=== PATIENT | male | born 1985 | race Caucasian/White ===

== ENCOUNTER 2017-02-19 23:19 | Emergency (ER) | payer BC, OTHER ==
[~2017-02-19] VITALS: Ht 180.3 cm; Wt 111.5 kg
[2017-02-19 23:24] VITALS: BP 147/93; TEMP 36.9; Ht 180.3 cm; Wt 111.5 kg
[2017-02-19] MEDS ORDERED: DEXAMETHASONE SOD INJ 10 MG/ML VIAL PO ONE (23:30)
[2017-02-19] MEDS ORDERED: AMOXICIL/CLAVU 875MG HOME PACK PO ONE (23:30)
[2017-02-19] MEDS ORDERED: OXYCODONE IR HOME PACK PO ONE (23:30)
[2017-02-19] MEDS ORDERED: AMOX875T PO (23:35)
[2017-02-19 23:49] VITALS: PULSE 81; O2SAT 99
--- NOTE | 2017-02-20 05:47 | EMERGENCY ROOM VISIT NOTE ---
History First contact with patient: 23:29 Chief Complaint: EAR PAIN Stated Complaint: EAR ACHE,SORETHOAT History of Present Illness The patient is a 31 year old male who presents to the Emergency Room with complaints of cough, congestion, cold symptoms for the past few days who developed left ear pain today. Pain currently 5 out of 10. Nothing makes it better or worse. It does not radiate. Subjective fever and chills. Patient denies chest pain, dyspnea, neck stiffness, abdominal pain, vomiting, diarrhea. Review of Systems See HPI for pertinent positives & negatives. A total of 10 systems reviewed and were otherwise negative. Past Medical/Surgical History Medical Problems: (1) No Known Active Medical Problems Social History Smoking Status: Never Smoker Alcohol Use: occasionally Marital Status: single Housing Status: lives with family Occupation Status: employed Current/Historical Medications Scheduled Amoxicillin & Pot Clavulanate (Augmentin 875-125 mg), 1 TAB PO BID Physical Exam Vital Signs Date Time Temp Pulse Resp B/P (MAP) Pulse Ox O2 Delivery O2 Flow Rate FiO2 02/19/17 23:49 81 18 99 02/19/17 23:24 36.9 98 18 147/93 97 Room Air Pain Rating (0-10): 3.0 Physical Exam VITALS: Vitals are noted on the nurse's note and reviewed by myself. Vital signs stable. GENERAL: Pleasant male, in no acute distress, nondiaphoretic, well-developed well-nourished. SKIN: The skin was without rashes, erythema, edema, or bruising. There is no tenting of the skin. Capillary reflex less than 2 seconds. HEAD: Normocephalic atraumatic. EARS: Left TM Bulging consistent with otitis media, right External auditory canals clear, tympanic membranes pearly ruelas without erythema or effusion no mastoid tenderness bilaterally. EYES: Pupils equal round and reactive to light and accommodation. Conjunctivae without injection, sclerae without icterus. Extraocular movements intact. NOSE: Patent, turbinates without inflammation or discharge. No sinus tenderness. MOUTH: Mucous membranes moist. Pharynx without erythema or exudate. Uvula midline. Airway patent. Tongue does not deviate. NECK: Supple without nuchal rigidity. No lymphadenopathy. No thyromegaly. Cervical spine is nontender. No JVD. HEART: Regular rate and rhythm without murmurs gallops or rubs. LUNGS: Clear to auscultation bilaterally without wheezes, rales or rhonchi. No dullness to percussion. No retractions or accessory muscle use. ABDOMEN: Positive bowel sounds x 4. Normal tympanic percussion. Soft, nontender, without masses or organomegaly. Mayen sign negative. No guarding or rebound tenderness. MUSCULOSKELETAL: No muscle atrophy, erythema, or edema noted. NEURO: Patient was alert and oriented to person place and time. Normal sensation to light and sharp touch. No focal neurological deficits. Medical Decision & Procedures Medications Administered Medications (Trade) Dose Ordered Sig/Manish Route Start Time Stop Time Status Last Admin Dose Admin Oxycodone HCl (Roxicodone Immediate Rel 5MG Home Pack) 1 homepack UD ONCE PO 02/19/17 23:30 02/19/17 23:32 DC 02/19/17 23:45 1 HOMEPACK Dexamethasone Sodium Phosphate (Decadron Inj) 10 mg NOW ONCE PO 02/19/17 23:30 02/19/17 23:32 DC 02/19/17 23:45 10 MG Amoxicillin/ Clavulanate Potassium (Augmentin 875MG Home Pack) 1 homepack UD ONCE PO 02/19/17 23:30 02/19/17 23:32 DC 02/19/17 23:45 1 HOMEPACK ED Course Prior records/ancillary studies reviewed. Triage Nursing notes reviewed. The patient's history was concerning for a cold symptoms Differential diagnosis: Etiologies such as viral syndrome, tonsillitis, streptococcal pharyngitis, mononucleosis, peritonsillar abscess, retropharyngeal abscess, otitis, pneumonia , influenza, as well as others were entertained. ER treatment provided: Augmentin On reassessment the patient felt better. Diagnostics interpreted by me: Deferred This appears to be consistent with left otitis media. Patient states he has resistance with amoxicillin and normally needs Augmentin. He also states that he needs steroids. Patient had no signs of meningitis or mastoiditis. He was well-appearing. He was started on antibiotics and advised follow-up family care here in the ER sooner for high fevers, lethargy, next of this, worsening signs or symptoms or as needed. Patient no signs of airway comprise or abscess.. By the evaluation outlined above emergent etiologies such as peritonsillar abscess, retropharyngeal abscess, pneumonia, meningitis, urinary tract infection, sepsis, bacteremia, as well as others were deemed relatively unlikely. The pt informed about the findings as listed above. All questions were answered and pleased with the treatment. Return instructions were outlined and the patient was discharged in stable condition. Outpatient prescription management: Augmentin Referral: The patient was referred back to their primary care physician for follow-up in 2 to 3 days for a recheck of the current condition. Medical Decision As above Medication Reconcilliation Current Medication List: was personally reviewed by me Blood Pressure Screening Patient's blood pressure: Elevated blood pressure Blood pressure disposition: Elevated BP felt to be situational, Referred to PCP Impression Primary Impression: Left otitis media Departure Information Dispostion Home / Self-Care Condition GOOD Prescriptions Amoxicillin & Pot Clavulanate (Augmentin 875-125 mg) 1 Tab Tab 1 TAB PO BID for 9 Days, #18 TAB Prov: Ann Graff PA-C 02/19/17 Referrals No Doctor, Assigned (PCP) Krista Sandra M.D. Forms WORK / SCHOOL INSTRUCTIONS, HOME CARE DOCUMENTATION FORM, IMPORTANT VISIT INFORMATION Patient Instructions [facility], ED Otitis Media Serous Adult Additional Instructions Amoxicillin Clavulanate (Augmentin) 875mg: Take one pill twice daily for 10 days for your infection. All antibiotics can cause diarrhea. If this occurs and you feel worse or it does not resolve in 1-2 days follow up with your doctor or return to the Emergency Department as this could be signs of serious underlying problems. Any medication can cause an allergic reaction, stop the pills immediately and return to the ER for rash, hives, breathing difficulties, or swelling. Acetaminophen(Tylenol) may be used for fever or pain. Use 1000mg every six hours as needed. Avoid using more than 3000mg in a 24 hour period. Oxycodone (OxyIR) 5mg: Take 1-2 pills every four hours for breakthrough pain. Avoid alcohol, operating machinery or dangerous equipment, working on ladders or roofs, DRIVING, or situations where being under the influence may be dangerous. It is recommended to use an [id number] stool softener such as Colace, 100mg twice daily while taking this medication to avoid constipation. Afrin nasal spray: 2-3 sprays to each nostril twice daily as needed for congestion. Do not use for more than 3-4 days because it can lead to worsening rebound congestion. Pseudoephedrine(Sudaphed): 30-60mg every 6 hours as needed for nasal congestion. Do not take this with other stimulant products or supplements. Rest and drink plenty of fluids. Controlling your fever with Tylenol and Ibuprofen as above will make you feel better. Wash your hands after nose blowing, sneezing, or coughing. Most germs are spread through contact, therefore improper hygiene may result in your close contacts and loved ones becoming ill just like you. Continue current medications. Return to the ER for severe headache, neck stiffness, chest pain, difficulty breathing, fevers, vomiting, worsening of your condition, or as needed. Follow up with your primary physician this week for a recheck of your current condition. Problem Qualifiers Primary Impression: Left otitis media Otitis media type: suppurative Chronicity: acute Recurrence: not specified as recurrent Spontaneous tympanic membrane rupture: without spontaneous rupture Qualified Codes: H66.002 - Acute suppurative otitis media without spontaneous rupture of ear drum, left ear
== END 2017-02-19 23:50 | disposition home or self-care (01) ==
LOC: C.EDB 23:20 → C.EDD 23:50
DX: H66.92 Otitis media, unspecified, left ear (principal)

== ENCOUNTER 2022-04-27 07:15 | Inpatient (IN) ==
[2022-04-27] MEDS ORDERED: SODIUM CHLORIDE 0.9% 1000ML 1,000 ML IV STA (07:22)
[2022-04-27] MEDS ORDERED: MoRPHine SULFATE 4 MG/ML 1 ML CARP\\VIAL IV STA ×2 (07:28→08:00)
[2022-04-27] MEDS ORDERED: ONDANSETRON INJ 2 MG/ML 2 ML VIAL IV STA (07:28)
--- NOTE | 2022-04-27 07:32 | Emergency Department Note ---
Impression & Plan Pancreatitis ED Provider Note Provider: Juanito Washington MD DATE OF SERVICE: 04/27/2022 CHIEF COMPLAINT: Upper abdominal pain HISTORY OF PRESENT ILLNESS: Patient is a 36-year-old gentleman history of GERD and seasonal allergies presenting here today stating over the past 5 days or so developing some pain in the upper abdomen. Worse over the past 2 days. Seen at an urgent care yesterday with an x-ray and some basic blood work and scheduled for an ultrasound on Tuesday to evaluate for possible gallbladder symptoms. Reports upper abdominal pain intermittently some nausea. Denies vomiting or diarrhea. States little constipated if anything. Denies any significant lower abdominal pain or pain. Reports upper abdominal pain with slight radiation to the flanks. Patient states it hurts when he takes deep breath. Denies any trauma. Denies a history of similar prior abdominal surgeries. Patient has tried some Tylenol without improvement. Did not eat much overnight as he did no t know if this would affect imaging. Given worsening came here today. REVIEW OF SYSTEMS: A total of 10 review of systems was obtained and negative except as stated above in the HPI. PAST MEDICAL HISTORY: As noted above MEDICATIONS: Reviewed home medications SOCIAL HISTORY: Lives in [facility] PHYSICAL EXAM: GENERAL: alert and oriented but appears uncomfortable laying on stretcher Head: normocephalic and atraumatic EYES: No injection, discharge or icterus. NECK: Trachea midline. Supple. ENT: Mucous membranes pink and moist. LUNGS: Airway patent. No retractions. Breath sounds clear with good air entry bilaterally. HEART: Regular rate and rhythm. No chest wall tenderness ABDOMEN: Soft and non-tender, without guarding or rebound. No masses BACK: Significant upper abdominal tenderness and SKIN: Acyanotic, warm, dry, without rashes EXTREMITIES: Without swelling, tenderness or deformity NEUROLOGICAL: No focal deficits. No aphasia. No facial droop or slurred speech. Normal strength and tone in the extremities. Sensation to gross touch normal. Ambulatory. EK bpm normal sinus rhythm. No PVC or PAC. No acute ST segment elevation or depression with a QTC of 437 and lead III T wave inversions noted. CONTINUOUS CARDIAC MONITORING: was ordered and showed a heart rate of 90s-110s bpm in normal sinus rhythm to sinus tachycardia Patient's laboratory studies and imaging reviewed. Differential includes Appendicitis, testicular torsion, infections, diverticulitis, UTI, obstruction, mesenteric ischemia, aortic pathology, inflammatory bowel disease, renal colic, PUD, pancreatitis, biliary pathology, hernia, volvulus, constipation, as well as other pathologies. IMPRESSION/MEDICAL DECISION MAKING: Patient denies any lower abdominal pain or pain. Low suspicion for this or appendicitis. Significant upper abdominal discomfort. Could possibly represent biliary disease and will send for an ultrasound. EKG obtained as well troponin which are reassuring. Basic labs sent. Given his tenderness question again possible biliary pathology versus other occult intra-abdominal pathology particularly if ultrasound is reassuring. It is morphine, Zofran, and IV fluids here to help with symptom control. Blood work here shows leukocytosis 14. No anemia. No significant electrolyte abnormality or signs of renal dysfunction. Troponin is undetectable and again I doubt this is cardiac in nature especially in light of several days of symptoms. AST ALT alkaline phosphatase within normal limits with bilirubin 1.1 just above normal. No evidence of lipase based on laboratory studies. Negative COVID. Gallbladder ultrasound returns by radiology report without significant gallbladder findings noted. CT scan of the abdomen pelvis to be completed of the patient's pain improving some after some morphine. Question possible gastric etiology. CT report however is indicative of acute pancreatitis even though lipase is not elevated. Given this discussed with patient further care at the hospital and hospitalist was contacted. Patient denies significant a lcohol use and no history of diabetes. Triglycerides not elevated. DIAGNOSIS: Acute pancreatitis DISPOSITION: Hospitalist will evaluate Patient was agreeable with this plan. Past Med/Surg History Medical History Acute left otitis media Substernal chest pain Family History Other No significant family history Social History Smoking Status: Never smoker Preferred Language: Bengali Feels Safe at Home: Yes Allergies Allergies Allergy/AdvReac Type Severity Reaction Status Date / Time NSAIDS (Non-Steroidal Allergy Intermediate HAND Verified 04/13/22 22:02 Anti-Inflamma EDEMA/VESICULAR ERUPTION bee venom protein (honey bee) AdvReac swelling @ Verified 04/13/22 22:03 site Home Meds Home Medications Medication Instructions Recorded Confirmed acetaminophen 500 mg tablet 1,000 - 1,500 mg PO TID PRN Pain 04/13/22 04/13/22 (Tylenol Extra Strength) cephalexin 500 mg capsule 500 mg PO QID 04/13/22 04/13/22 fexofenadine 180 mg tablet 180 mg PO DAILY 04/13/22 04/13/22 ([facility] Allergy) omeprazole 20 mg capsule,delayed 20 mg PO DAILY 04/13/22 04/13/22 release Previous Rx's Medication Instructions Recorded amoxicillin 875 mg-potassium 1 tab PO BID #20 tabs 04/13/22 clavulanate 125 mg tablet Results & Data (ED) Vital Signs Vital Signs - 24 hr 04/27/22 07:16 04/27/22 07:46 04/27/22 07:45 Temperature 36.4 C L Temperature Source Temporal Artery Scan Pulse Rate 125 H 96 H Pulse Rate [Finger] Pulse Rate from SpO2 Sensor Pulse Rhythm Regular Respiratory Rate 22 19 Respiratory Effort / Characteristics Respiratory Depth Normal Respiratory Pattern Blood Pressure 130/75 Blood Pressure [Right Arm] Blood Pressure Mean 93 Blood Pressure Mean [Right Arm] Blood Pressure Position [Right Arm] Pulse Oximetry 97 91 Oxygen Delivery Method Room Air Room Air Room Air Sepsis Recent Fever Within 48 Hours No Sepsis New/Unexplained Change in Mental Status N/A Sepsis Action Taken by Nursing No Action Required 04/27/22 07:50 04/27/22 09:52 04/27/22 09:22 Temperature Temperature Source Pulse Rate 116 H 95 H Pulse Rate [Finger] 101 H Pulse Rate from SpO2 Sensor Pulse Rhythm Respiratory Rate 20 16 19 Respiratory Effort / Characteristics Non-Labored Spontaneous Respiratory Depth Normal Respiratory Pattern Regular Blood Pressure Blood Pressure [Right Arm] 154/90 H Blood Pressure Mean Blood Pressure Mean [Right Arm] 111 Blood Pressure Position [Right Arm] Lying Pulse Oximetry 96 98 Oxygen Delivery Method Room Air Room Air Room Air Sepsis Recent Fever Within 48 Hours Sepsis New/Unexplained Change in Mental Status Sepsis Action Taken by Nursing 04/27/22 09:30 04/27/22 09:40 04/27/22 09:50 Temperature Temperature Source Pulse Rate 101 H 102 H 110 H Pulse Rate [Finger] Pulse Rate from SpO2 Sensor Pulse Rhythm Respiratory Rate 14 19 18 Respiratory Effort / Characteristics Respiratory Depth Respiratory Pattern Blood Pressure Blood Pressure [Right Arm] Blood Pressure Mean Blood Pressure Mean [Right Arm] Blood Pressure Position [Right Arm] Pulse Oximetry Oxygen Delivery Method Room Air Room Air Room Air Sepsis Recent Fever Within 48 Hours Sepsis New/Unexplained Change in Mental Status Sepsis Action Taken by Nursing 04/27/22 09:51 04/27/22 09:51 04/27/22 10:00 Temperature Temperature Source Pulse Rate 93 H Pulse Rate [Finger] Pulse Rate from SpO2 Sensor 98 H Pulse Rhythm Respiratory Rate 17 Respiratory Effort / Characteristics Respiratory Depth Respiratory Pattern Blood Pressure 154/90 H 165/102 H Blood Pressure [Right Arm] Blood Pressure Mean 111 123 Blood Pressure Mean [Right Arm] Blood Pressure Position [Right Arm] Pulse Oximetry 98 Oxygen Delivery Method Room Air Room Air Room Air Sepsis Recent Fever Within 48 Hours Sepsis New/Unexplained Change in Mental Status Sepsis Action Taken by Nursing 04/27/22 10:00 04/27/22 10:10 04/27/22 10:20 Temperature Temperature Source Pulse Rate 110 H 104 H 106 H Pulse Rate [Finger] Pulse Rate from SpO2 Sensor 107 H 104 H 108 H Pulse Rhythm Respiratory Rate 24 17 27 H Respiratory Effort / Characteristics Respiratory Depth Respiratory Pattern Blood Pressure Blood Pressure [Right Arm] Blood Pressure Mean Blood Pressure Mean [Right Arm] Blood Pressure Position [Right Arm] Pulse Oximetry 97 94 97 Oxygen Delivery Method Room Air Room Air Room Air Sepsis Recent Fever Within 48 Hours Sepsis New/Unexplained Change in Mental Status Sepsis Action Taken by Nursing 04/27/22 10:30 04/27/22 10:30 04/27/22 10:40 Temperature Temperature Source Pulse Rate 98 H 106 H Pulse Rate [Finger] Pulse Rate from SpO2 Sensor 98 H 105 H Pulse Rhythm Respiratory Rate 19 20 Respiratory Effort / Characteristics Respiratory Depth Respiratory Pattern Blood Pressure 152/94 H Blood Pressure [Right Arm] Blood Pressure Mean 113 Blood Pressure Mean [Right Arm] Blood Pressure Position [Right Arm] Pulse Oximetry 97 97 Oxygen Delivery Method Room Air Room Air Room Air Sepsis Recent Fever Within 48 Hours Sepsis New/Unexplained Change in Mental Status Sepsis Action Taken by Nursing 04/27/22 10:50 04/27/22 11:59 04/27/22 11:00 Temperature Temperature Source Pulse Rate 99 H Pulse Rate [Finger] Pulse Rate from SpO2 Sensor 98 H Pulse Rhythm Respiratory Rate 18 Respiratory Effort / Characteristics Respiratory Depth Respiratory Pattern Blood Pressure 119/77 Blood Pressure [Right Arm] Blood Pressure Mean 91 Blood Pressure Mean [Right Arm] Blood Pressure Position [Right Arm] Pulse Oximetry 94 Oxygen Delivery Method Room Air Room Air Room Air Sepsis Recent Fever Within 48 Hours Sepsis New/Unexplained Change in Mental Status Sepsis Action Taken by Nursing 04/27/22 11:00 04/27/22 11:10 04/27/22 11:20 Temperature Temperature Source Pulse Rate 98 H 102 H 103 H Pulse Rate [Finger] Pulse Rate from SpO2 Sensor 99 H 104 H 102 H Pulse Rhythm Respiratory Rate 19 18 17 Respiratory Effort / Characteristics Respiratory Depth Respiratory Pattern Blood Pressure Blood Pressure [Right Arm] Blood Pressure Mean Blood Pressure Mean [Right Arm] Blood Pressure Position [Right Arm] Pulse Oximetry 95 96 97 Oxygen Delivery Method Room Air Room Air Room Air Sepsis Recent Fever Within 48 Hours Sepsis New/Unexplained Change in Mental Status Sepsis Action Taken by Nursing 04/27/22 11:30 04/27/22 11:30 04/27/22 11:40 Temperature Temperature Source Pulse Rate 110 H Pulse Rate [Finger] Pulse Rate from SpO2 Sensor 101 H 109 H Pulse Rhythm Respiratory Rate 14 18 Respiratory Effort / Characteristics Respiratory Depth Respiratory Pattern Blood Pressure 150/88 H Blood Pressure [Right Arm] Blood Pressure Mean 108 Blood Pressure Mean [Right Arm] Blood Pressure Position [Right Arm] Pulse Oximetry 100 96 Oxygen Delivery Method Room Air Room Air Room Air Sepsis Recent Fever Within 48 Hours Sepsis New/Unexplained Change in Mental Status Sepsis Action Taken by Nursing 04/27/22 11:50 Temperature Temperature Source Pulse Rate Pulse Rate [Finger] Pulse Rate from SpO2 Sensor 104 H Pulse Rhythm Respiratory Rate 18 Respiratory Effort / Characteristics Respiratory Depth Respiratory Pattern Blood Pressure Blood Pressure [Right Arm] Blood Pressure Mean Blood Pressure Mean [Right Arm] Blood Pressure Position [Right Arm] Pulse Oximetry 97 Oxygen Delivery Method Room Air Sepsis Recent Fever Within 48 Hours Sepsis New/Unexplained Change in Mental Status Sepsis Action Taken by Nursing Laboratory Data Result diagrams: 04/27/22 07:48 04/27/22 07:48 Lab Results 04/27/22 04/27/22 04/27/22 Range/Units 07:42 07:48 07:48 WBC 14.32 H (4.8-10.8) K/ul RBC 5.56 (4.63-6.08) M/uL Hgb 16.7 (14.0-18.0) g/dl Hct 48.3 (40.1-51.0) % MCV 86.9 (80.0-100.0) fL MCH 30.0 (25.0-34.0) pg MCHC 34.6 (32.0-36.0) g/dL RDW Std Deviation 41.8 (36.4-46.3) fL RDW Coeff of Finn 13.2 (11.5-14.5) % Plt Count 258 (130-400) K/uL MPV 9.4 (9.4-12.4) fL Immature Gran % (Auto) 0.4 % Neut % (Auto) 76.8 % Lymph % (Auto) 14.9 % Bryan % (Auto) 7.3 % Eos % (Auto) 0.3 % Baso % (Auto) 0.3 % Neut # (Auto) 10.99 H (1.4-6.5) K/uL Lymph # (Auto) 2.13 (1.2-3.4) K/uL Bryan # (Auto) 1.04 H (0.24-0.82) K/uL Eos # (Auto) 0.05 (0-0.50) K/uL Baso # (Auto) 0.05 (0-0.2) K/uL Immature Gran # (Auto) 0.06 H (0.00-0.02) K/uL Sodium 137 (136-145) mmol/L Potassium 4.0 (3.5-5.1) mmol/L Chloride 102 (98-107) mmol/L Carbon Dioxide 27 (21-32) mmol/L Anion Gap 8 (3-11) BUN 10 (6-23) mg/dl Creatinine 1.06 (0.6-1.4) mg/dl Est Cr Clr Drug Dosing 121.0 ml/min Est GFR ( Amer) 105.6 ml/min Est GFR (Non-Af Amer) 91.1 ml/min BUN/Creatinine Ratio 9.4 L (10-20) Glucose 103 H (70-99(Fasting)) mg/dl Calcium 9.9 (8.5-10.1) mg/dl Total Bilirubin 1.1 H (0.2-1.0) mg/dl AST 14 (13-39) U/L ALT 24 (7-52) U/L Alkaline Phosphatase 41 (34-104) U/L Troponin I High Sens < 2.3 (0-20) pg/ml Total Protein 7.7 (6.0-8.3) gm/dl Albumin 4.7 (3.4-5.0) gm/dl Globulin 3.0 (2.5-4.0) gm/dl Albumin/Globulin Ratio 1.6 (0.9-2) Triglycerides (0-150) mg/dl Lipase 32 (11-82) U/L Urine Color Urine Appearance (Clear) Urine pH (4.5-7.5) Ur Specific [place] (1.000-1.030) Urine Protein (Negative) Urine Glucose (UA) (Negative) Urine Ketones (Negative) Urine Blood (Negative) Urine Nitrite (Negative) Urine Bilirubin (Negative) Urine Urobilinogen (Negative) Ur Leukocyte Esterase (Negative) SARS-CoV-2, RNA, NAAT NEGATIVE (NEGATIVE) 04/27/22 04/27/22 Range/Units 07:48 10:35 WBC (4.8-10.8) K/ul RBC (4.63-6.08) M/uL Hgb (14.0-18.0) g/dl Hct (40.1-51.0) % MCV (80.0-100.0) fL MCH (25.0-34.0) pg MCHC (32.0-36.0) g/dL RDW Std Deviation (36.4-46.3) fL RDW Coeff of Finn (11.5-14.5) % Plt Count (130-400) K/uL MPV (9.4-12.4) fL Immature Gran % (Auto) % Neut % (Auto) % Lymph % (Auto) % Bryan % (Auto) % Eos % (Auto) % Baso % (Auto) % Neut # (Auto) (1.4-6.5) K/uL Lymph # (Auto) (1.2-3.4) K/uL Bryan # (Auto) (0.24-0.82) K/uL Eos # (Auto) (0-0.50) K/uL Baso # (Auto) (0-0.2) K/uL Immature Gran # (Auto) (0.00-0.02) K/uL Sodium (136-145) mmol/L Potassium (3.5-5.1) mmol/L Chloride (98-107) mmol/L Carbon Dioxide (21-32) mmol/L Anion Gap (3-11) BUN (6-23) mg/dl Creatinine (0.6-1.4) mg/dl Est Cr Clr Drug Dosing ml/min Est GFR ( Amer) ml/min Est GFR (Non-Af Amer) ml/min BUN/Creatinine Ratio (10-20) Glucose (70-99(Fasting)) mg/dl Calcium (8.5-10.1) mg/dl Total Bilirubin (0.2-1.0) mg/dl AST (13-39) U/L ALT (7-52) U/L Alkaline Phosphatase (34-104) U/L Troponin I High Sens (0-20) pg/ml Total Protein (6.0-8.3) gm/dl Albumin (3.4-5.0) gm/dl Globulin (2.5-4.0) gm/dl Albumin/Globulin Ratio (0.9-2) Triglycerides 101 (0-150) mg/dl Lipase (11-82) U/L Urine Color Yellow Urine Appearance Clear (Clear) Urine pH 5.5 (4.5-7.5) Ur Specific [place] > 1.045 H (1.000-1.030) Urine Protein Negative (Negative) Urine Glucose (UA) Negative (Negative) Urine Ketones Trace H (Negative) Urine Blood Negative (Negative) Urine Nitrite Negative (Negative) Urine Bilirubin Negative (Negative) Urine Urobilinogen Negative (Negative) Ur Leukocyte Esterase Negative (Negative) SARS-CoV-2, RNA, NAAT (NEGATIVE) Administered Medications Discontinued Medications Sodium Chloride (Nss 1000ml) 1,000 mls @ 999 mls/hr IV .Q1H1M STA Stop: 04/27/22 08:22 Last Infusion: 04/27/22 09:00 Dose: 0 mls/hr Documented By: Admin: 04/27/22 07:35 Dose: 999 mls/hr Documented By: MORIAH Lactated Ringer's (Lr) 1,000 mls @ 999 mls/hr IV .Q1H1M ONE Stop: 04/27/22 11:11 Last Infusion: 04/27/22 11:39 Dose: 0 mls/hr Documented By: Admin: 04/27/22 10:37 Dose: 999 mls/hr Documented By: MORIAH Ioversol (Optiray 350 100ml) 94 ml IV ONCE ONE Stop: 04/27/22 09:20 Last Admin: 04/27/22 09:20 Dose: 94 ml Documented By: CHERISE Morphine Sulfate (Morphine Sulfate 4 Mg/Ml 1 Ml Carp\Vial) 4 mg IV NOW STA Stop: 04/27/22 07:29 Last Admin: 04/27/22 07:35 Dose: 4 mg Documented By: MORIAH Morphine Sulfate (Morphine Sulfate 4 Mg/Ml 1 Ml Carp\Vial) 4 mg IV NOW STA Stop: 04/27/22 08:01 Last Admin: 04/27/22 11:21 Dose: 4 mg Documented By: WAQAS Morphine Sulfate (Morphine Sulfate 4 Mg/Ml 1 Ml Carp\Vial) Confirm Administered Dose 4 mg .ROUTE .STK-MED ONE Stop: 04/27/22 11:21 Last Admin: 04/27/22 11:22 Dose: Not Given Documented By: WAQAS Ondansetron HCl (Ondansetron Inj 2 Mg/Ml 2 Ml Vial) 4 mg IV NOW STA Stop: 04/27/22 07:29 Last Admin: 04/27/22 07:34 Dose: 4 mg Documented By: MORIAH Imaging Data Radiologist's Impression: Gallbladder Ultrasound 04/27/22 07:22 US gallbladder CLINICAL HISTORY: upper abd pain TECHNIQUE: Multiple real-time sonographic images of the right upper quadrant were obtained. Comparison: None available at the time of this dictation. FINDINGS: The liver is diffusely homogenous with normal contour and echogenicity. No focal mass lesions are seen. No intrahepatic ductal dilatation is seen. No gallstones or sludge are identified within the gallbladder. The gallbladder wall is not thickened. There is no pericholecystic fluid present. A sonographic Mayen's sign was not elicited by the associate professor of media arts. There is tenderness over the pancreas. The common duct measures 0.5 cm in diameter at the level of the hepatic artery. The pancreas is not well visualized secondary to overlying bowel gas. The right kidney shows normal echogenicity, cortical thickness and renal c ontour. The right kidney shows no evidence of hydronephrosis or mass. No ascites or free fluid is seen in Vazquez's pouch. IMPRESSION: Unremarkable right upper quadrant ultrasound. There is tenderness over the pancreas which was not well-visualized. If there is clinical concern, CT evaluation is recommended. ACT 112: Negative or not required by law. Electronically signed by: Ilya Mitchell M.D. 04/27/2022 8:34 AM Abdomen/Pelvis CT 04/27/22 08:37 CT abd pelvis IV con only CLINICAL HISTORY: epigastric pain to RUQ pain TECHNIQUE: Helical axial images of the abdomen and pelvis were obtained and displayed. Automated dose lowering techniques and/or adjustment according to patient size were utilized for this exam. This exam was performed with intravenous contrast. CT DOSE: 865.85 mGy.cm COMPARISON: Comparison is made to right upper quadrant ultrasound 04/27/2022 FINDINGS: Lower chest: No acute abnormality. Liver: Unremarkable. No focal lesions are seen. Gallbladder and biliary tree: No calcified gallstones. Normal caliber wall. No intra- or extrahepatic biliary ductal dilation. Pancreas: There is edema in the body of the pancreas with surrounding fat stranding. Spleen: Splenule is incidentally noted. Adrenals: Unremarkable. Kidneys and ureters: Unremarkable. Bladder: Unremarkable. Reproductive organs: Unremarkable. Bowel: Unremarkable appearance of the bowel. The appendix is normal. There is a small hiatal hernia. Lymph nodes Retroperitoneal: Subcentimeter lymph nodes are noted. Pelvic: Unremarkable. Mesenteric: Unremarkable. Peritoneum: Fat stranding is seen about the head and body of the pancreas. A small amount of free fluid is seen in the pelvis. Vessels: Unremarkable. Abdominal wall: Unremarkable. Bones: Unremarkable. IMPRESSION: Findings are compatible with acute pancreatitis. No evidence of cholecystitis is seen. There is peripancreatic fat stranding without well-defined peripancreatic fluid collections. ACT 112: Negative or not required by law. Electronically signed by: Ilya Mitchell M.D. 04/27/2022 9:40 AM Discharge Plan Visit Data Chief Complaint: Abdominal Pain Stated Complaint: POSSIBLE GALLBLADDER ISSUES ED Provider: Juanito Washington Discharge Problem: Pancreatitis Patient Disposition: Admitted As Inpatient Discharge Instructions Interventions: ED Discharge Assessment Last Done: 04/27/22 11:59 : Pancreatitis Qualifiers: Chronicity: acute Pancreatitis type: unspecified pancreatitis type Acute pancreatitis complication: unspecified Qualified Code(s): K85.90 - Acute pancreatitis without necrosis or infection, unspecified
[2022-04-27 07:57] LABS: Basophils # (auto) 0.05 K/uL (0-0.2); Basophils % (auto) 0.3 %; Eosinophils # (auto) 0.05 K/uL (0-0.50); Eosinophils % (auto) 0.3 %; Hematocrit (blood only) 48.3 % (40.1-51.0); Hemoglobin 16.7 g/dl (14.0-18.0); Immature Granulocytes # (auto) 0.06 K/uL (0.00-0.02); Immature Granulocytes % (auto) 0.4 %; Lymphocytes # (auto) 2.13 K/uL (1.2-3.4); Lymphocytes % (auto) 14.9 %; Mean Corpuscular Hgb Conc 34.6 g/dL (32.0-36.0); Mean Corpuscular Volume 86.9 fL (80.0-100.0); Mean Platelet Volume 9.4 fL (9.4-12.4); Monocytes # (auto) 1.04 K/uL (0.24-0.82); Monocytes % (auto) 7.3 %; Neutrophils # (auto) 10.99 K/uL (1.4-6.5); Neutrophils % (auto) 76.8 %; Platelet Count 258 K/uL (130-400); RDW Coefficient of Variation 13.2 % (11.5-14.5); RDW Standard Deviation 41.8 fL (36.4-46.3); Red Blood Count 5.56 M/uL (4.63-6.08); White Blood Count 14.32 K/ul (4.8-10.8)
[2022-04-27 08:20] LABS: Alanine Aminotransferase 24 U/L (7-52); Albumin Globulin Ratio 1.6 (0.9-2); Albumin Level 4.7 gm/dl (3.4-5.0); Alkaline Phosphatase 41 U/L (34-104); Anion Gap 8 (3-11); Aspartate Aminotransferase 14 U/L (13-39); BUN Creatinine Ratio 9.4 (10-20); Bilirubin,Total 1.1 mg/dl (0.2-1.0); Blood Urea Nitrogen 10 mg/dl (6-23); Calcium 9.9 mg/dl (8.5-10.1); Carbon Dioxide 27 mmol/L (21-32); Chloride 102 mmol/L (98-107); Est GFR (African American) 105.6 ml/min; Est GFR (Non-African American) 91.1 ml/min; Glucose 103 mg/dl (70-99(Fasting)); Lipase 32 U/L (11-82); Sodium 137 mmol/L (136-145); Total Protein 7.7 gm/dl (6.0-8.3)
[2022-04-27 08:23] LABS: Troponin I High Sensitivity < 2.3 pg/ml (0-20)
--- NOTE | 2022-04-27 08:35 | Ultrasound Report ---
US gallbladder CLINICAL HISTORY: upper abd pain TECHNIQUE: Multiple real-time sonographic images of the right upper quadrant were obtained. Comparison: None available at the time of this dictation. FINDINGS: The liver is diffusely homogenous with normal contour and echogenicity. No focal mass lesions are see n. No intrahepatic ductal dilatation is seen. No gallstones or sludge are identified within the g allbladder. The gallbladder wall is not thickened. There is no pericholecystic fluid present. A sonog raphic Mayen's sign was not elicited by the curtain mender. There is tenderness over the pancreas. The common duct measures 0.5 cm in diameter at the level of the hepatic artery. The pancreas is not wel l visualized secondary to overlying bowel gas. The right kidney shows normal echogenicity, cortical thickness and renal contour. The right kidney sh ows no evidence of hydronephrosis or mass. No ascites or free fluid is seen in Vazquez's pouch. IMPRESSION: Unremarkable right upper quadrant ultrasound. There is tenderness over the pancreas which was not wel l-visualized. If there is clinical concern, CT evaluation is recommended. ACT 112: Negative or not required by law. Electronically signed by: Ilya Mitchell M.D. 04/27/2022 8:34 AM
[2022-04-27] MEDS ORDERED: OPTIRAY 350 100ml IV ONE (09:19)
--- NOTE | 2022-04-27 09:42 | CT Scan Report ---
CT abd pelvis IV con only CLINICAL HISTORY: epigastric pain to RUQ pain TECHNIQUE: Helical axial images of the abdomen and pelvis were obtained and displayed. Automated dose lowering techniques and/or adjustment according to patient size were utilized for this exam. This e xam was performed with intravenous contrast. CT DOSE: 865.85 mGy.cm COMPARISON: Comparison is made to right upper quadrant ultrasound 04/27/2022 FINDINGS: Lower chest: No acute abnormality. Liver: Unremarkable. No focal lesions are seen. Gallbladder and biliary tree: No calcified gallstones. Normal caliber wall. No intra- or extrahepatic biliary ductal dilation. Pancreas: There is edema in the body of the pancreas with surrounding fat stranding. Spleen: Splenule is incidentally noted. Adrenals: Unremarkable. Kidneys and ureters: Unremarkable. Bladder: Unremarkable. Reproductive organs: Unremarkable. Bowel: Unremarkable appearance of the bowel. The appendix is normal. There is a small hiatal hernia. Lymph nodes Retroperitoneal: Subcentimeter lymph nodes are noted. Pelvic: Unremarkable. Mesenteric: Unremarkable. Peritoneum: Fat stranding is seen about the head and body of the pancreas. A small amount of free flu id is seen in the pelvis. Vessels: Unremarkable. Abdominal wall: Unremarkable. Bones: Unremarkable. IMPRESSION: Findings are compatible with acute pancreatitis. No evidence of cholecystitis is seen. There is perip ancreatic fat stranding without well-defined peripancreatic fluid collections. ACT 112: Negative or not required by law. Electronically signed by: Ilya Mitchell M.D. 04/27/2022 9:40 AM
[2022-04-27] MEDS ORDERED: LACTATED RINGER'S 1,000 ML IV ONE (10:11)
--- NOTE | 2022-04-27 10:26 | History & Physical Report ---
Date of Service April 27, 2022 Assessment & Plan (1) Pancreatitis: Plan: Claude is a 36-year-old male with a past medical history of GERD and allergies who presents with 5 days of upper abdominal pain significantly worsened in the last 2 days. Was scheduled by urgent care for an ultrasound on Tuesday for possible cholelithiasis, however her pain has significantly increased and patient presented to our ER for urgent evaluation. He is found to have pancreatitis. Acute pancreatitis, suspect drug-induced CTA/P with IV contrast: Findings are compatible with acute pancreatitis. No evidence of cholecystitis is seen. There is peripancreatic fat stranding without well-defined peripancreatic fluid collections. - Gallbladder ultrasound: Unremarkable right upper quadrant ultrasound. Tenderness over the pancreas during exam Very rare alcohol intake, calcium normal, no history of diabetes, no transaminitis, no evidence of gallstones Patient did recently complete a course of Bactrim with Augmentin for cellulitis, Bactrim is been the cause of drug-induced pancreatitis Low Suspicion for infected pancreatitis, will defer antibiotics at this time Mild leukocytosis to 14.32, suspect reactive. If worsening/febrile add enteric coverage - Triglycerides 101 Hemoglobin 16.7 Sodium normal, potassium normal If recurrent episode without provoking factor/medication given age onset would follow-up with GI consult for EUS versus MRCP & PRSS1, SPINK1, CFTR, CTRC, CASR ,Claudin-2 testing Creatinine 1.06 on admission with normal baseline No transaminitis. Total bilirubin 1.1 Lipase 32 COVID-negative - Ransons criteria 0, low risk severe pancreatis unlikely History of right hand cellulitis Resolved, no pain. Mild residual scab overlying original wound without tenderness/fluctuance/purulence Can follow clinically, no additional antibiotics at this time DVT prophylaxis: Low risk, SCDs Diet: N.p.o., advance to clears when tolerated Disposition: Medical/surgical CODE STATUS: Full code History of Present Illness Primary Care Provider: NO PCP Claude is a 36-year-old male with a past medical history of GERD and allergies who presents with 5 days of upper abdominal pain significantly worsened in the last 2 days. Was scheduled by urgent care for an ultrasound on Tuesday for possible cholelithiasis, however her pain has significantly increased and patient presented to our ER for urgent evaluation. He is found to have pancreatitis. CTA/P with IV contrast: Findings are compatible with acute pancreatitis. No evidence of cholecystitis is seen. There is peripancreatic fat stranding without well-defined peripancreatic fluid collections. Gallbladder ultrasound: Unremarkable right upper quadrant ultrasound. Tenderness over the pancreas during exam Indigestion since last . Tuesday progressively worsening and 1 day ago with greatly increased upper abdominal pain. blood work at urgent care was normal other than a slightly increased WBC. Scheduled for a US gallbladder on Tuesday but pain wosened significantly last night and cam ein for eval today. No fevers, chills or sweats no vomiting, +nausea +constipation since Tuesday, -diarrhea. Normally BM 2-3 per day sometimes up to 5x per da loose. No bloody or black BMs. Endorses pain in his low bilateral ribs, no upper chest pain. Hurts to the touch and worse with deep breathing. No dyspnea. +mild headache since this morning. Hx of headaches when he doesn't sleep well. no vision change. FHX: No hx pancreatitis. Father with hx of bowel resection but is not sure why, thnks diverticulitis. PGM with cancer but not sure what kind. No HI, no strokes. No fhx thyroid disease. No fhx DM. Worsening Factors: Moving. Hasn't eaten much sinec pain started, not sure if meals worsen pain. Appetite decreased, easy and early satiety. Little ham and crackers yesterday ronaldo Was on antibiotics for cellulitis of the hand which has improved. Antibiotics included Bactrim and Augmentin Medical History: Reviewed Medications: Reviewed Surgical History: Reviewed. Hx of ear tubes 2020. Allergies: Reviewed Social History: No tobacco use currently or fomerly. EtoH very rare 1 maybe 2 drinks every 3-4 months/. No MM or vaping. No rec drug use. Code Status: Surrogate DM would be christine Madden [facility] [phone]. Full Code. Allergies Allergy/AdvReac Type Severity Reaction Status Date / Time NSAIDS (Non-Steroidal Allergy Intermediate HAND Verified 04/13/22 22:02 Anti-Inflamma EDEMA/VESICULAR ERUPTION bee venom protein (honey bee) AdvReac swelling @ Verified 04/13/22 22:03 site Home Medications Medication Instructions Recorded Confirmed Type acetaminophen 500 mg tablet 1,000 - 1,500 mg PO TID PRN Pain 04/13/22 04/13/22 History (Tylenol Extra Strength) amoxicillin 875 mg-potassium 1 tab PO BID #20 tabs 04/13/22 Rx clavulanate 125 mg tablet cephalexin 500 mg capsule 500 mg PO QID 04/13/22 04/13/22 History fexofenadine 180 mg tablet 180 mg PO DAILY 04/13/22 04/13/22 History ([facility]te Allergy) omeprazole 20 mg capsule,delayed 20 mg PO DAILY 04/13/22 04/13/22 History release Past Med/Surg History Medical History Acute left otitis media Substernal chest pain Family History Other No significant family history Social History Smoking Status: Never smoker Preferred Language: Sinhala Feels Safe at Home: Yes Review of Systems Review of Systems: All systems reviewed & are unremarkable except as noted in HPI & below Physical Exam Physical Exam: General: A&Ox3. NAD. Cooperative. HEENT: Atraumatic, normocephalic. Vision/hearing grossly intact Pulm: CTAB A&P. -wheezes, -rales, -rhonchi. Symmetrical chest rise. No increased work of breathing. No respiratory distress. Cardiac: RRR, -mrg. Radial pulses intact and symmetrical. Abdominal: Tender to palpation at epigastrium with radiation to left and right lower ribs, no right upper quadrant tenderness, no rebound, no guarding. Bowel sounds intact Extremities: Right hand with small scab at center of prior cellulitis just proximal to second MCP, no tenderness/fluctuance/swelling with mild increase in color but no erythema/warmth. Auricular Therapist strength 5/5 without pain and full range of motion. Left hand with 5/5 auditing control clerk strength. Sensation soft touch intact in hands bilaterally without asymmetry Results & Data Results & Data ([facility]) Vital Signs (Past 12 Hours) Vital Signs Temp Pulse Pulse Resp BP BP Pulse Ox 04/27/22 09:52 101 H 16 154/90 H 98 04/27/22 07:50 116 H 20 96 04/27/22 07:45 96 H 19 91 04/27/22 07:46 04/27/22 07:16 36.4 C L 125 H 22 130/75 97 O2 Del Method 04/27/22 09:52 Room Air 04/27/22 07:50 Room Air 04/27/22 07:45 Room Air 04/27/22 07:46 Room Air 04/27/22 07:16 Room Air PG Care Time/CCT Total # of Minutes Spent Total Time Spent with Patient: Total time spent is greater than 50% in coordination of care (as documented) at patient's floor/unit and/or counseling patient: Coding Level of Care Code 66330 Initial Inpt Care Lvl 2 Diagnoses Pancreatitis K85.90 Acute pancreatitis complication: unspecified Chronicity: acute Pancreatitis type: unspecified pancreatitis type (1) Pancreatitis Acute pancreatitis complication: unspecified Chronicity: acute Pancreatitis type: unspecified pancreatitis type Qualified Code(s): K85.90 - Acute pancreatitis without necrosis or infection, unspecified
[2022-04-27 11:01] LABS: Appearance Urine Clear (Clear); Bilirubin Urine Negative (Negative); Blood Urine Negative (Negative); Color Urine Yellow; Glucose Urine UA Negative (Negative); Ketones Urine Trace (Negative); Leukocyte Esterase Urine Negative (Negative); Nitrite Urine Negative (Negative); Protein Urine Negative (Negative); Specific Gravity Urine > 1.045 (1.000-1.030); Urobilinogen Urine Negative (Negative); pH Urine 5.5 (4.5-7.5)
[2022-04-27] MEDS ORDERED: MoRPHine SULFATE 4 MG/ML 1 ML CARP\\VIAL ONE (11:20)
[2022-04-27] MEDS ORDERED: MoRPHine SULFATE 2 MG/ML CARP IV PRN (12:19)
[2022-04-27] MEDS ORDERED: MoRPHine SULFATE 4 MG/ML 1 ML CARP\\VIAL IV PRN (12:19)
[2022-04-27] MEDS: LACTATED RINGER'S 1,000 ML IV SCH ×3 (12:53→22:58)
[2022-04-27] MEDS: ACETAMINOPHEN 325 MG TAB PO PRN ×2 (13:10→17:20)
[2022-04-27] MEDS: ONDANSETRON INJ 2 MG/ML 2 ML VIAL IV SCH ×3 (13:14→23:36)
[2022-04-28] MEDS: LACTATED RINGER'S 1,000 ML IV SCH ×3 (03:58→20:39)
[2022-04-28] MEDS: ONDANSETRON INJ 2 MG/ML 2 ML VIAL IV SCH ×4 (05:09→23:33)
--- NOTE | 2022-04-28 07:36 | Hospitalist Progress Note ---
Date of Service April 28, 2022 Assessment & Plan (1) Pancreatitis: Plan: Claude is a 36-year-old male with a past medical history of GERD and allergies who presents with 5 days of upper abdominal pain significantly worsened in the last 2 days. Was scheduled by urgent care for an ultrasound on Tuesday for possible cholelithiasis, however her pain has significantly increased and patient presented to our ER for urgent evaluation. He is found to have pancreatitis. Acute pancreatitis, suspect drug-induced CT A/P with contrast: Findings with acute pancreatitis. No evidence of cholecystitis is seen. There is peripancreatic fat stranding without well- defined peripancreatic fluid collections. - Gallbladder US: Unremarkable. Tenderness over the pancreas during exam, improving. Very rare alcohol intake, calcium normal, no history of diabetes, no transaminitis, no evidence of gallstones Patient did recently complete a course of Bactrim with Augmentin for cellulitis, Bactrim is been the cause of drug-induced pancreatitis Low Suspicion for infected pancreatitis, will defer antibiotics at this time Mild leukocytosis to 14.32, suspect reactive. If worsening/febrile add enteric coverage - Triglycerides 101 Hemoglobin 16.7 Sodium normal, potassium normal If recurrent episode without provoking factor/medication given age onset would follow-up with GI consult for EUS versus MRCP & PRSS1, SPINK1, CFTR, CTRC, CASR ,Claudin-2 testing Creatinine 1.06 on admission with normal baseline No transaminitis. Total bilirubin 1.1 Lipase 32 COVID-negative - Ransons criteria 0, low risk severe pancreatis unlikely History of right hand cellulitis Resolved, no pain. Mild residual scab overlying original wound without tenderness/fluctuance/purulence Can follow clinically, no additional antibiotics at this time DVT ppx: SCDs Diet: clears, advance as tolerated Code status: Full code Dispo: med surg Admission and Anticipated Discharge Date Admission Date: April 27, 2022 Supervising Physician Co-Signing Physician Notes I personally examined the patient and verified all steele points of history and exam, discussed case, and agree with decision making with Dr Terry. Feeling better. No nausea. Abdominal pain better. Just mostly a soreness. Vitals noted, in general he is awake and alert pleasant no distress. HEENT normocephalic atraumatic mucous membranes moist. Breathing unlabored no accessory muscle use good effort. Skin shows no rashes no pallor or icterus. Neuro without focal deficits. Abdomen is soft mild epigastric tenderness no guarding rebound or rigidity Acute pancreatitis,SIRS of non-infectious origin due to pancreatitis present on admission, pancreatitis likely due to Bactrim (no alcohol, no evidence of gallstones, triglycerides are about 100)improving, advance to low-fat diet, hopefully home tomorrow DVT prophylaxisambulation otherwise as above Subjective Seen at bedside this morning. Pain is minimal. Has been drinking water orally on top of IVF. NPO as of this morning. Willing to try advancing diet. Review of Systems Review of Systems: All systems reviewed & are unremarkable except as noted in HPI & below Physical Exam Physical Exam: General: A&Ox3. NAD. Cooperative. HEENT: Atraumatic, normocephalic. Moist mucous membranes. Pulm: CTAB. -wheezes, -rales, -rhonchi. Symmetrical chest rise. No increased work of breathing. No respiratory distress. Cardiac: RRR, -mrg. Radial pulses intact and symmetrical. Abdominal: Mild TTP RUQ, epigastric, LUQ without guarding or rebound tenderness. Bowel sounds present. Extremities: Right hand with small scab at center of prior cellulitis just proximal to second MCP, no tenderness/fluctuance/swelling/erythema/warmth. Senior Web Services Developer strength 5/5 without pain and full range of motion. Sensation soft touch intact in hands bilaterally without asymmetry Results & Data Results & Data ([facility]) Vital Signs (Past 12 Hours) Vital Signs Temp Pulse Resp BP Pulse Ox O2 Del Method 04/27/22 21:29 37.3 C 93 H 16 114/63 96 Room Air Resident Activity Tracking Resident Involvement: Resident Care Provided Care Provided: Adult Hospital Medicine (1) Pancreatitis Acute pancreatitis complication: unspecified Chronicity: acute Pancreatitis type: unspecified pancreatitis type Qualified Code(s): K85.90 - Acute pancreatitis without necrosis or infection, unspecified
[2022-04-28] MEDS: ACETAMINOPHEN 325 MG TAB PO PRN (07:53)
--- NOTE | 2022-04-28 19:02 | Billing Data ---
Date of Service April 28, 2022 Coding Level of Care Code 76896 Subseq Hosp Care Lvl 3
--- NOTE | 2022-04-28 23:42 | Electrocardiogram Report ---
Test Reason : Blood Pressure : / mmHG Vent. Rate : 094 BPM Atrial Rate : 094 BPM P-R Int : 132 ms QRS Dur : 088 ms QT Int : 350 ms P-R-T Axes : 052 037 009 degrees QTc Int : 437 ms Normal sinus rhythm Normal ECG When compared with ECG of 04-JUL-2019 00:35, No significant change was found Confirmed by Layton Jeffries ([id number]) on 04/28/2022 11:42:30 PM Referred By: REFERRED SELF Confirmed By:Layton Jeffries
[2022-04-29] MEDS: ACETAMINOPHEN 325 MG TAB PO PRN (00:59)
[2022-04-29] MEDS: LACTATED RINGER'S 1,000 ML IV SCH (03:21)
[2022-04-29] MEDS: ONDANSETRON INJ 2 MG/ML 2 ML VIAL IV SCH (05:49)
[2022-04-29 06:37] LABS: Basophils # (auto) 0.04 K/uL (0-0.2); Basophils % (auto) 0.5 %; Eosinophils # (auto) 0.08 K/uL (0-0.50); Eosinophils % (auto) 1.1 %; Hematocrit (blood only) 42.6 % (40.1-51.0); Hemoglobin 14.7 g/dl (14.0-18.0); Immature Granulocytes # (auto) 0.03 K/uL (0.00-0.02); Immature Granulocytes % (auto) 0.4 %; Lymphocytes # (auto) 2.27 K/uL (1.2-3.4); Lymphocytes % (auto) 30.7 %; Mean Corpuscular Hemoglobin 29.7 pg (25.0-34.0); Mean Corpuscular Hgb Conc 34.5 g/dL (32.0-36.0); Mean Corpuscular Volume 86.1 fL (80.0-100.0); Mean Platelet Volume 9.2 fL (9.4-12.4); Monocytes # (auto) 0.53 K/uL (0.24-0.82); Monocytes % (auto) 7.2 %; Neutrophils # (auto) 4.44 K/uL (1.4-6.5); Neutrophils % (auto) 60.1 %; Platelet Count 237 K/uL (130-400); RDW Standard Deviation 40.1 fL (36.4-46.3); Red Blood Count 4.95 M/uL (4.63-6.08); White Blood Count 7.39 K/ul (4.8-10.8)
--- NOTE | 2022-04-29 06:55 | Hospitalist Progress Note ---
Date of Service April 29, 2022 Assessment & Plan (1) Pancreatitis: Plan: Claude is a 36-year-old male with a past medical history of GERD and allergies who presents with 5 days of upper abdominal pain significantly worsened in the last 2 days. Was scheduled by urgent care for an ultrasound on Tuesday for possible cholelithiasis, however her pain has significantly increased and patient presented to our ER for urgent evaluation. He is found to have pancreatitis. Acute pancreatitis, suspect drug-induced CT A/P with contrast: Findings with acute pancreatitis. No evidence of cholecystitis is seen. There is peripancreatic fat stranding without well- defined peripancreatic fluid collections. - Gallbladder US: Unremarkable. Tenderness over the pancreas during exam, improving. Very rare alcohol intake, calcium normal, no history of diabetes, no transaminitis, no evidence of gallstones Patient did recently complete a course of Bactrim with Augmentin for cellulitis, Bactrim is been the cause of drug-induced pancreatitis Low Suspicion for infected pancreatitis, will defer antibiotics at this time Mild leukocytosis to 14.32, suspect reactive. If worsening/febrile add enteric coverage - Triglycerides 101 Hemoglobin 16.7 Sodium normal, potassium normal If recurrent episode without provoking factor/medication given age onset would follow-up with GI consult for EUS versus MRCP & PRSS1, SPINK1, CFTR, CTRC, CASR ,Claudin-2 testing Creatinine 1.06 on admission with normal baseline No transaminitis. Total bilirubin 1.1 Lipase 32 COVID-negative - Ransons criteria 0, low risk severe pancreatis unlikely History of right hand cellulitis Resolved, no pain. Mild residual scab overlying original wound without tenderness/fluctuance/purulence Can follow clinically, no additional antibiotics at this time DVT ppx: SCDs Diet: clears, advance as tolerated Code status: Full code Dispo: med surg Admission and Anticipated Discharge Date Admission Date: April 27, 2022 Subjective Seen at bedside this morning. Pain is minimal with some nausea. Advanced to low fat diet last night for dinner. Denies chest pain, headache, sob vomiting. Review of Systems Review of Systems: All systems reviewed & are unremarkable except as noted in HPI & below Physical Exam Physical Exam: General: A&Ox3. NAD. Cooperative. HEENT: Atraumatic, normocephalic. Moist mucous membranes. Pulm: CTAB. -wheezes, -rales, -rhonchi. Symmetrical chest rise. No increased work of breathing. No respiratory distress. Cardiac: RRR, -mrg. Radial pulses intact and symmetrical. Abdominal: Mild TTP RUQ, epigastric, LUQ without guarding or rebound tenderness. Bowel sounds present. Extremities: Right hand with small scab at center of prior cellulitis just proximal to second MCP, no tenderness/fluctuance/swelling/erythema/warmth. Blankbook Forwarder strength 5/5 without pain and full range of motion. Sensation soft touch intact in hands bilaterally without asymmetry Results & Data Results & Data ([facility]) Vital Signs (Past 12 Hours) Vital Signs Temp Pulse Resp BP Pulse Ox O2 Del Method 04/28/22 21:07 37 C 90 18 132/79 95 Room Air (1) Pancreatitis Acute pancreatitis complication: unspecified Chronicity: acute Pancreatitis type: unspecified pancreatitis type Qualified Code(s): K85.90 - Acute pancreatitis without necrosis or infection, unspecified
--- NOTE | 2022-04-29 12:51 | Discharge Summary ---
Date of Service April 29, 2022 Admission HPI Per Admitting Provider Claude is a 36-year-old male with a past medical history of GERD and allergies who presents with 5 days of upper abdominal pain significantly worsened in the last 2 days. Was scheduled by urgent care for an ultrasound on Tuesday for possible cholelithiasis, however her pain has significantly increased and patient presented to our ER for urgent evaluation. He is found to have pancreatitis. CTA/P with IV contrast: Findings are compatible with acute pancreatitis. No evidence of cholecystitis is seen. There is peripancreatic fat stranding without well-defined peripancreatic fluid collections. Gallbladder ultrasound: Unremarkable right upper quadrant ultrasound. Tenderness over the pancreas during exam Indigestion since last . Tuesday progressively worsening and 1 day ago with greatly increased upper abdominal pain. blood work at urgent care was normal other than a slightly increased WBC. Scheduled for a US gallbladder on Tuesday but pain wosened significantly last night and cam ein for eval today. No fevers, chills or sweats no vomiting, +nausea +constipation since Tuesday, -diarrhea. Normally BM 2-3 per day sometimes up to 5x per da loose. No bloody or black BMs. Endorses pain in his low bilateral ribs, no upper chest pain. Hurts to the touch and worse with deep breathing. No dyspnea. +mild headache since this morning. Hx of headaches when he doesn't sleep well. no vision change. FHX: No hx pancreatitis. Father with hx of bowel resection but is not sure why, thnks diverticulitis. PGM with cancer but not sure what kind. No OK, no strokes. No fhx thyroid disease. No fhx DM. Worsening Factors: Moving. Hasn't eaten much sinec pain started, not sure if meals worsen pain. Appetite decreased, easy and early satiety. Little ham and crackers yesterday ronaldo Was on antibiotics for cellulitis of the hand which has improved. Antibiotics included Bactrim and Augmentin Medical History: Reviewed Medications: Reviewed Surgical History: Reviewed. Hx of ear tubes 2020. Allergies: Reviewed Social History: No tobacco use currently or fomerly. EtoH very rare 1 maybe 2 drinks every 3-4 months/. No MM or vaping. No rec drug use. Code Status: Surrogate DM would be christine Madden [facility] [phone]. Full Code. Principal Diagnosis acute pancreatitis Discharge Exam General: A&Ox3. NAD. Cooperative. HEENT: Atraumatic, normocephalic. Moist mucous membranes. Pulm: CTAB. -wheezes, -rales, -rhonchi. Symmetrical chest rise. No increased work of breathing. No respiratory distress. Cardiac: RRR, -mrg. Radial pulses intact and symmetrical. Abdominal: Mild TTP RUQ, epigastric, LUQ without guarding or rebound tenderness, overall improving. Bowel sounds present. Extremities: Right hand with small scab at center of prior cellulitis just proximal to second MCP, no tenderness/erythema/warmth with mild swelling. [employer] strength 5/5 without pain and full range of motion. Sensation soft touch intact in hands bilaterally without asymmetry Discharge Data Allergies Allergy/AdvReac Type Severity Reaction Status Date / Time NSAIDS (Non-Steroidal Allergy Intermediate HAND Verified 04/13/22 22:02 Anti-Inflamma EDEMA/VESICULAR ERUPTION bee venom protein (honey bee) AdvReac swelling @ Verified 04/13/22 22:03 site Consultations 04/27/22 10:11 ED Decision to Admit Stat Ordered Studies Laboratory Results WBC 7.39 K/ul (4.8-10.8) 04/29/22 06:07 RBC 4.95 M/uL (4.63-6.08) 04/29/22 06:07 Hgb 14.7 g/dl (14.0-18.0) 04/29/22 06:07 Hct 42.6 % (40.1-51.0) 04/29/22 06:07 MCV 86.1 fL (80.0-100.0) 04/29/22 06:07 MCH 29.7 pg (25.0-34.0) 04/29/22 06:07 MCHC 34.5 g/dL (32.0-36.0) 04/29/22 06:07 RDW Std Deviation 40.1 fL (36.4-46.3) 04/29/22 06:07 RDW Coeff of Finn 13.0 % (11.5-14.5) 04/29/22 06:07 Plt Count 237 K/uL (130-400) 04/29/22 06:07 MPV 9.2 fL (9.4-12.4) L 04/29/22 06:07 Immature Gran % (Auto) 0.4 % 04/29/22 06:07 Neut % (Auto) 60.1 % 04/29/22 06:07 Lymph % (Auto) 30.7 % 04/29/22 06:07 [place] % (Auto) 7.2 % 04/29/22 06:07 Eos % (Auto) 1.1 % 04/29/22 06:07 Baso % (Auto) 0.5 % 04/29/22 06:07 Neut # (Auto) 4.44 K/uL (1.4-6.5) 04/29/22 06:07 Lymph # (Auto) 2.27 K/uL (1.2-3.4) 04/29/22 06:07 [place] # (Auto) 0.53 K/uL (0.24-0.82) 04/29/22 06:07 Eos # (Auto) 0.08 K/uL (0-0.50) 04/29/22 06:07 Baso # (Auto) 0.04 K/uL (0-0.2) 04/29/22 06:07 Immature Gran # (Auto) 0.03 K/uL (0.00-0.02) H 04/29/22 06:07 Sodium 137 mmol/L (136-145) 04/27/22 07:48 Potassium 4.0 mmol/L (3.5-5.1) 04/27/22 07:48 Chloride 102 mmol/L (98-107) 04/27/22 07:48 Carbon Dioxide 27 mmol/L (21-32) 04/27/22 07:48 Anion Gap 8 (3-11) 04/27/22 07:48 BUN 10 mg/dl (6-23) 04/27/22 07:48 Creatinine 1.06 mg/dl (0.6-1.4) 04/27/22 07:48 Est Cr Clr Drug Dosing 121.0 ml/min 04/27/22 07:48 Est GFR ( Amer) 105.6 ml/min 04/27/22 07:48 Est GFR (Non-Af Amer) 91.1 ml/min 04/27/22 07:48 BUN/Creatinine Ratio 9.4 (10-20) L 04/27/22 07:48 Glucose 103 mg/dl (70-99(Fasting)) H 04/27/22 07:48 Calcium 9.9 mg/dl (8.5-10.1) 04/27/22 07:48 Total Bilirubin 1.1 mg/dl (0.2-1.0) H 04/27/22 07:48 AST 14 U/L (13-39) 04/27/22 07:48 ALT 24 U/L (7-52) 04/27/22 07:48 Alkaline Phosphatase 41 U/L (34-104) 04/27/22 07:48 Troponin I High Sens < 2.3 pg/ml (0-20) 04/27/22 07:48 Total Protein 7.7 gm/dl (6.0-8.3) 04/27/22 07:48 Albumin 4.7 gm/dl (3.4-5.0) 04/27/22 07:48 Globulin 3.0 gm/dl (2.5-4.0) 04/27/22 07:48 Albumin/Globulin Ratio 1.6 (0.9-2) 04/27/22 07:48 Triglycerides 101 mg/dl (0-150) 04/27/22 07:48 Lipase 32 U/L (11-82) 04/27/22 07:48 Urine Color Yellow 04/27/22 10:35 Urine Appearance Clear (Clear) 04/27/22 10:35 Urine pH 5.5 (4.5-7.5) 04/27/22 10:35 Ur Specific [place] > 1.045 (1.000-1.030) H 04/27/22 10:35 Urine Protein Negative (Negative) 04/27/22 10:35 Urine Glucose (UA) Negative (Negative) 04/27/22 10:35 Urine Ketones Trace (Negative) H 04/27/22 10:35 Urine Blood Negative (Negative) 04/27/22 10:35 Urine Nitrite Negative (Negative) 04/27/22 10:35 Urine Bilirubin Negative (Negative) 04/27/22 10:35 Urine Urobilinogen Negative (Negative) 04/27/22 10:35 Ur Leukocyte Esterase Negative (Negative) 04/27/22 10:35 SARS-CoV-2, RNA, NAAT NEGATIVE (NEGATIVE) 04/27/22 07:42 Impressions Gallbladder Ultrasound 04/27/22 07:22 US gallbladder CLINICAL HISTORY: upper abd pain TECHNIQUE: Multiple real-time sonographic images of the right upper quadrant were obtained. Comparison: None available at the time of this dictation. FINDINGS: The liver is diffusely homogenous with normal contour and echogenicity. No focal mass lesions are seen. No intrahepatic ductal dilatation is seen. No gallstones or sludge are identified within the gallbladder. The gallbladder wall is not thickened. There is no pericholecystic fluid present. A sonographic Mayen's sign was not elicited by the tire mounter. There is tenderness over the pancreas. The common duct measures 0.5 cm in diameter at the level of the hepatic artery. The pancreas is not well visualized secondary to overlying bowel gas. The right kidney shows normal echogenicity, cortical thickness and renal contour. The right kidney shows no evidence of hydronephrosis or mass. No ascites or free fluid is seen in Vazquez's pouch. IMPRESSION: Unremarkable right upper quadrant ultrasound. There is tenderness over the pancreas which was not well-visualized. If there is clinical concern, CT evaluation is recommended. ACT 112: Negative or not required by law. Electronically signed by: Ilya Mitchell M.D. 04/27/2022 8:34 AM Abdomen/Pelvis CT 04/27/22 08:37 CT abd pelvis IV con only CLINICAL HISTORY: epigastric pain to RUQ pain TECHNIQUE: Helical axial images of the abdomen and pelvis were obtained and displayed. Automated dose lowering techniques and/or adjustment according to patient size were utilized for this exam. This exam was performed with intravenous contrast. CT DOSE: 865.85 mGy.cm COMPARISON: Comparison is made to right upper quadrant ultrasound 04/27/2022 FINDINGS: Lower chest: No acute abnormality. Liver: Unremarkable. No focal lesions are seen. Gallbladder and biliary tree: No calcified gallstones. Normal caliber wall. No intra- or extrahepatic biliary ductal dilation. Pancreas: There is edema in the body of the pancreas with surrounding fat stranding. Spleen: Splenule is incidentally noted. Adrenals: Unremarkable. Kidneys and ureters: Unremarkable. Bladder: Unremarkable. Reproductive organs: Unremarkable. Bowel: Unremarkable appearance of the bowel. The appendix is normal. There is a small hiatal hernia. Lymph nodes Retroperitoneal: Subcentimeter lymph nodes are noted. Pelvic: Unremarkable. Mesenteric: Unremarkable. Peritoneum: Fat stranding is seen about the head and body of the pancreas. A small amount of free fluid is seen in the pelvis. Vessels: Unremarkable. Abdominal wall: Unremarkable. Bones: Unremarkable. IMPRESSION: Findings are compatible with acute pancreatitis. No evidence of cholecystitis is seen. There is peripancreatic fat stranding without well-defined peripancreatic fluid collections. ACT 112: Negative or not required by law. Electronically signed by: Ilya Mitchell M.D. 04/27/2022 9:40 AM Hospital Course (1) Pancreatitis: Claude is a 36-year-old male with a past medical history of GERD and allergies who presents with 5 days of upper abdominal pain significantly worsened in the last 2 days. Was scheduled by urgent care for an ultrasound on Tuesday for possible cholelithiasis, however her pain has significantly increased and patient presented to our ER for urgent evaluation. He is found to have pancreatitis. Acute pancreatitis, suspect drug-induced CT A/P with contrast: Findings with acute pancreatitis. No evidence of cholecystitis is seen. There is peripancreatic fat stranding without well- defined peripancreatic fluid collections. - Gallbladder US: Unremarkable. Tenderness over the pancreas during exam, improving. Very rare alcohol intake, calcium normal, no history of diabetes, no transaminitis, no evidence of gallstones Patient did recently complete a course of Bactrim with Augmentin for cellulitis, Bactrim is been the cause of drug-induced pancreatitis Low Suspicion for infected pancreatitis, abx deferred Mild leukocytosis to 14.32, suspect reactive.Improved. - Triglycerides 101 Hemoglobin 16.7 Sodium normal, potassium normal Creatinine 1.06 on admission with normal baseline No transaminitis.Total bilirubin 1.1 Lipase 32 COVID-negative - Ransons criteria 0, low risk severe pancreatis unlikely - Advanced diet to low fat regular in the hospital prior to discharge. Pain controlled on tylenol. Recommend avoiding Bactrim in the future as this is the most suspicious cause of his pancreatitis at this time. If recurrent episode without provoking factor/medication given age onset would follow-up with GI consult for EUS versus MRCP - f/u pcp, is going to establish in [place] History of right hand cellulitis Resolved, no pain. Mild residual scab overlying original wound without tenderness Can follow clinically, no additional antibiotics at this time Total Time Total Time Spent Total Time Spent (In Minutes): 30 Discharge Plan Discharge Items Patient Disposition: Home - Self-Care Reason For Visit: ACUTE PANCREATITIS Discharge Diagnosis: as above Activity: Per Instructions section Non-emergency contact: Primary Care Provider Call non-emergency contact if: you have any medication questions and your symptoms worsen Follow-up/Referrals: PCP,NO [Primary Care Provider] - Diet: Low Fat Addtl Attending Provider Instructions: You were admitted to [facility] due to abdominal pain and nausea. You were found to have pancreatitis. While it is not entirely certain what caused this, we were able to rule out the most common causes of this, which include alcohol, high triglycerides, gallstones, among others. As such, the most likely cause seems to be the Bactrim antibiotic that you were taking. We recommend you avoid taking this in the future. Due to your acid symptoms, we'll prescribe Protonix for two weeks to help decrease the symptoms. We recommend adhering to a low fat diet, for which we pilar brown provided information. Please return to the hospital if you develop worsening abdominal pain, nausea, vomiting, dark stools, bloody stools, or any other concerning symptoms. Follow up with your PCP for continued care. Pending Studies at Discharge: No Stand-Alone Forms: My [email or web address], Smoking Cessation Medications and DC Order Prescriptions: New pantoprazole [Protonix] 40 mg tablet,delayed release (DR/EC) 40 mg PO DAILY 14 Days Qty: 14 0RF Continued fexofenadine [Violette Allergy] 180 mg Tablet 180 mg PO DAILY Changed acetaminophen [Tylenol Extra Strength] 500 mg Tablet 1,000 mg PO TID PRN (Reason: Pain) 30 Days Qty: 0 0RF Discontinued cephalexin 500 mg capsule 500 mg PO QID omeprazole 20 mg Capsule,Delayed Release(Dr/Ec) 20 mg PO DAILY amoxicillin-pot clavulanate 875-125 mg tablet 1 tab PO BID Qty: 20 0RF Discharge Orders: Discharge Order (Routine); Ordered 04/29/22 Ordered By: Fuentes Piper/Other Patient Handouts: Low-Fat Cooking Tips, ED Diet, Low Fat Admission Data Admit Date/Time: 04/27/22 10:41 Attending Provider: Sherin Hills Admit Provider: Clovis Galindo Primary Care Provider: PCP,NO Other Providers: Clovis Galindo Other Interventions: Discharge Summary Assessment (RN) Last Done: 04/29/22 10:45 Supervising Physician Co-Signing Physician Notes Resident Supervision Note: I personally saw and examined the patient. I verified all steele points and agree with Dr. Terry with the following exceptions and/or additions: S-Pt chemotherapy has abdominal pain but is tolerating low-fat diet without difficulty. No chest pains or shortness of breath, no lightheadedness. He is ambulating in room difficulty. Passing flatus but no vomiting. O- Vitals reviewed Gen: AAOx3, NAD HEENT: Anicteric sclerae, EOMI CV: RRR no mgr nl S1S2 Pulm: CTAB no wcr Abd: +BS soft NT ND no masses or hernias Ext: No edema, 2+ DP pulses Skin: No rashes, warm/dry, right hand with small scab and very small amount of induration, no erythema Neuro: Full strength throughout Labs, Rads reviewed [id number] male here idiopathic pancreatitis, first episode. Could be drug-induced by trimethoprim/sulfamethoxazole, unclear. He could have autoimmune pancreatitis or perhaps pancreas divisum. No need for further work- up at this time but could consider MRCP and/or further serum testing for autoantibodies in the future if has recurrence. Advised to continue low-fat diet and avoid alcohol. Follow-up with PCP. Resident Activity Tracking Resident Involvement: Resident Care Provided Care Provided: Adult Hospital Medicine
--- NOTE | 2022-05-03 14:32 | Billing Data ---
Date of Service April 29, 2022 Coding Level of Care Code D/C DAY MANAGEMENT >30 MINS
== END 2022-04-29 11:43 | disposition home or self-care (01) | DRG 439 ==
LOC: ED 07:15 → 3W 10:41 → SUATTDRO 10:41 → 3W 11:59